=== PATIENT | male | born 1940 ===

== ENCOUNTER → 2023-10-21 07:12 | Outpatient (REF) | payer MEDICARE, SELFPAY | LOC: DHCBC HW 07:12 | PROVIDERS: ATTENDING PHYSICIAN Nurse Practitioner Gerontology; FAMILY PHYSICIAN Internal Medicine | DX: I48.0 Paroxysmal atrial fibrillation (principal) | CPT/HCPCS: 93306 ==

== ENCOUNTER → 2023-11-09 06:37 | Outpatient (REF) | payer MEDICARE, SELFPAY ==
[2023-11-09 09:04] LABS: % Basophils 0.3 % (0-2); % Eosinophils 2.2 % (0-6); % Immature Granulocytes 0.3 % (0-0.5); % Lymphocytes 16.6 % (20.5-51.1); % Neutrophils 71.6 % (42.2-75.2); Absolute Eosinophils 0.2 10^3/uL (0-0.7); Absolute Lymphocytes 1.6 10^3/uL (1.2-3.4); Absolute Monocytes 0.9 10^3/uL (0.1-0.6); Absolute Neutrophils 6.8 10^3/uL (1.4-6.5); Hematocrit 42.2 % (39.0-52.0); Hemoglobin 14.6 g/dL (13.0-18.0); Mean Corp Hgb Conc. 34.6 g/dL (33.0-37.0); Mean Corpuscular Volume 98.4 fL (80.0-94.0); Mean Platelet Volume 9.6 fL (7.4-10.4); Nucleated Red Blood Cells % 0 % (-); Platelet Count 206 10^3/uL (130-400); Red Blood Cell Count 4.29 10^6/uL (4.70-6.10); White Blood Cell Count 9.5 10^3/uL (4.8-10.8)
[2023-11-09 09:08] LABS: ALT (SGPT) 29 U/L (0-50); AST (SGOT) 28 U/L (17-59); Albumin 4.1 g/dl (3.5-5.0); Alkaline Phosphatase 85 U/L (38-126); Blood Urea Nitrogen 18 mg/dl (9-20); Calcium 9.1 mg/dl (8.4-10.2); Carbon Dioxide 26 mmol/L (22-30); Chloride 102 mmol/L (98-107); Glucose 104 mg/dl (70-99); Potassium 3.8 mmol/L (3.5-5.1); Sodium 137 mmol/L (135-145); Total Bilirubin 1.8 mg/dl (0.2-1.3); Total Protein 6.7 g/dl (6.3-8.2); eGFR > 60.00
[2023-11-09 09:39] LABS: TSH Reflex To Free T4 0.91 uIU/ml (0.47-4.68)
[2023-11-09 11:38] LABS: Glycohemoglobin (HgbA1c) 6.3 % (4.0-5.6)
== END ==
LOC: HWLAB 06:37
PROVIDERS: ATTENDING PHYSICIAN Internal Medicine
DX: R63.4 Abnormal weight loss (principal); R73.03 Prediabetes
CPT/HCPCS: 36415; 80053; 83036; 84443; 85025

== ENCOUNTER → 2023-11-15 12:50 | Outpatient (REF) | payer MEDICARE, SELFPAY | LOC: HWRAD 12:50 | PROVIDERS: ATTENDING PHYSICIAN Internal Medicine; REFERRING PHYSICIAN Internal Medicine Gastroenterology | DX: R63.4 Abnormal weight loss (principal) | CPT/HCPCS: 71270; 74178; Q9967 ==

== ENCOUNTER 2024-02-17 13:24 | Emergency (ER) | payer MEDICARE, SELFPAY ==
--- NOTE | 2024-02-17 13:39 | ED.GENMED ---
History of Present Illness
General
Chief Complaint: Fall
Source: patient and ambulance crew
Exam Limitations: none
Time Seen by Provider: 02/17/24 13:32
History of Present Illness
History of Present Illness:
See MDM
Past History
Past History
ED Past Medical History: CVA, HTN and Hypercholesterolemia
ED Past Surgical History: Other (hernia sx)
Patient has exhibited threatening behavior?: No
PSI?: No
Social History
Tobacco: Non-smoker
Alcohol: None
Drug: None
Personal:
Living: with family
Employment: Retired
Phy Exam
Physical Exam
Physical Exam:
See MDM
Course
Orders/Labs/Results
Orders:
Orders
02/17/24 13:37
CT Head W/o Iv Contrast Urgent
Comment:
Reason For Exam: Left anterior head injury
Elbow, 3 view, Left [CR Elbow - Left Min 3 Views ] Urgent
Comment:
Reason For Exam: fall, left elbow pain
Procedures
Laceration Closure
Left Anterior Lateral Forehead:
Status of Wound: clean
Size of Wound in cm: 4
Description of Wound Edges: ragged
Preparation: cleaned with Betadine
Anesthesia: 1% Lidocaine with epi
Revision/Debridement: routine- no revision
Wound exploration: all visible FB removed
Type of Closure: single layer closure
Skin Closure Material: 4-0 vicryl
Number of sutures: 6
Additional information:
The green paint was removed from inside the bone using the bristles of the Betadine brush
MDM/Problems Addressed
Differential Diagnosis Includes:
HPI and MDM Narrative:
83-year-old male presenting with a trip and fall. Patient complains of mild headache and mild left elbow pain. He is currently on hospice. Per EMS, family called hospice and the transport was approved. He is still on hospice. Family wanted him
evaluated.
On exam, patient has large laceration to left forehead. He has a large skin tear to left elbow
Seen CT head and elbow x-ray
Physical exam
General: Well appearing and non-toxic
HEENT: protecting airway. 4 cm laceration to left forehead. Embedded with green paint
Neck: appears supple
CV: No evidence of cyanosis
Resp: No accessory muscle use
Abd: Non-distended
Extremities: 10 cm skin tear to left lateral elbow
Neuro: alert
Psych: Normal affect
Skin: Intact
Problems Addressed including Acute and Chronic Conditions affecting care:
1. Forehead laceration
Acuity: acute
Prognosis: stable
Details: Will obtain CT head and play stitches. Patient initially did not want stitches because he did not want them removed. The area is too large for. Patient to absorbable stitches
2. Elbow skin tear
Acuity: acute
Prognosis: stable
Details: Will obtain x-ray to rule out fracture
Updates
CT head negative. No fracture noted on elbow x-ray. Patient tolerated suture repair well
Differential Diagnosis (but not limited to): Contusion, intracranial hemorrhage, skull fracture
Testing considered: CT neck but no neck tenderness noted
Drug therapy (if applicable): OTC meds, please see d/c instruction regarding Rx drugs
Amount and/or Complexity of Data Reviewed
Clinical info obtained from: Patient
External data reviewed: N/A
Labs I independently reviewed (but not limited to): N/A
Radiology: N/A
Pulse Ox: not hypoxic
EKG independently reviewed: N/A
Hr Receptionist: N/A
Critical Care: N/A
Risk of Complication:
Social Determinants of health: Good social support
Discussed with other providers: N/A
Escalation of Care includes Admit/Obs: After being observed in the Emergency Department, pt stable for discharge.
Occasional wrong word or 'sound a like' substitutions may have occurred due to the inherent limitations of voice recognition software. Read the chart carefully and recognize, using context, where substitutions have occurred.
*Critical Care Note
Total Time (30-74mins, 75-104mins- exclusive of procedures): Not Applicable
ED Attending Note
-
Portions of this chart may have been created with voice recognition software.� Occasional wrong word or��sound alike� substitutions may have occurred due to the inherent limitations of voice recognition software.
Discharge Plan
Departure
Patient Disposition: Home (Routine Discharge)
Date of Disposition: 02/17/24
Time of Disposition: 15:08
Patient with high blood pressure during this ER visit?: No
Discharge Problem:
Head injury
Instructions: Head Injury in Adults (DC)
Prescriptions:
No Action
amlodipine [Norvasc] 5 mg Tablet
5 mg PO DAILY
simvastatin 20 mg Tablet
20 mg PO DAILY
metoprolol tartrate 50 mg Tablet
50 mg PO BID
vitamin B complex [B Complex-Vitamin B12] Tablet
1 tab PO DAILY
cholecalciferol (vitamin D3) [Vitamin D3] 50 mcg (2,000 unit) Capsule
50 mcg PO BID
Eliquis 5 mg Tablet
5 mg PO BID Qty: 60 0RF
Lagevrio (EUA) 200 mg Capsule
800 mg PO BID Qty: 7 0RF
potassium chloride 20 mEq tablet,ER particles/crystals
20 meq PO BID Qty: 10 0RF
Referrals:
Nieves Vidal DO [Family Provider] -
Activity Restrictions/Additional Instructions:
I placed 6 stitches in your forehead. They are absorbable and will dissolve on their own. Please return for worsening symptoms.
Interventions
Interventions:
*Risk Screen - Suicide Last Done: 02/17/24 14:05
*General Assessment Last Done: 02/17/24 14:05
*Neglect/Abuse Screening Last Done: 02/17/24 14:05
*ED COVID-19 Vaccine History Last Done: 02/17/24 14:05
Discharge Date and Time
Print Language: SERBIAN
[2024-02-17 15:25] VITALS: BP 112/82
== END 2024-02-17 15:49 | disposition home or self-care (01) ==
LOC: EMR 13:24
PROVIDERS: EMERGENCY PHYSICIAN Student in an Organized Health Care Education/Training Program; FAMILY PHYSICIAN Family Medicine Geriatric Medicine
DX: S09.90XA Unspecified injury of head, initial encounter (principal); S51.012A Laceration without foreign body of left elbow, initial encounter; S01.82XA Laceration with foreign body of other part of head, initial encounter; R51.9 Headache, unspecified; M25.522 Pain in left elbow; W01.0XXA Fall on same level from slipping, tripping and stumbling without subsequent striking against object, initial encounter; I10 Essential (primary) hypertension; E78.00 Pure hypercholesterolemia, unspecified; Z86.73 Personal history of transient ischemic attack (TIA), and cerebral infarction without residual deficits; Z79.01 Long term (current) use of anticoagulants
CPT/HCPCS: 99284; 12052; 70450; 73080